=== PATIENT | male | born 2005 | race African-American/Black ===

== ENCOUNTER 2024-04-08 01:05 | Emergency (ER) | payer OTHER ==
[~2024-04-08] VITALS: Ht 177.8 cm; Wt 83.9 kg
[2024-04-08 01:30] VITALS: O2SAT 97
[2024-04-08] MEDS: ONDANSETRON HCL 4MG/2ML INJ IV ONE (02:12)
[2024-04-08 02:26] LABS: BASOPHILS % 0.8 % (0.0-2.0); DIFFERENTIAL COMMENT 0; EOSINOPHILS % 5.6 % (0.0-5.0); HEMATOCRIT. 48.6 % (42.0-52.0); HEMOGLOBIN. 15.9 g/dL (14.0-18.0); MEAN CORPUSCULAR HEMOGLOBIN 25.1 pg (28.0-32.0); MEAN CORPUSCULAR HGB CONC 32.7 g/dL (31.0-37.0); MEAN CORPUSCULAR VOLUME 76.9 fL (80.0-94.0); MEAN PLATELET VOLUME 8.6 fl (7.4-10.4); MONOCYTES % 6.1 % (2.0-8.0); NEUTROPHILS % 46.5 % (40.0-76.0); PLATELET 261 x1000/uL (130-400); RED BLOOD CELL COUNT 6.32 mill/uL (4.7-6.1); RED CELL DISTRIBUTION WIDTH 13.5 % (11.6-14.6); WHITE BLOOD COUNT 8.6 x1000/uL (4.5-11.0)
[2024-04-08 02:35] LABS: CHLORIDE 107 mEq/L (98-107); POTASSIUM 3.9 mEq/L (3.5-5.1); SODIUM 141 mEq/L (136-145)
[2024-04-08 02:36] LABS: CALCIUM 9.3 mg/dL (8.7-10.4); CARBON DIOXIDE 25 mEq/L (21-32)
[2024-04-08 02:41] LABS: CREATININE 0.9 mg/dL (0.6-1.3); GLUCOSE 159 mg/dL (70-105); UREA NITROGEN BLOOD 7 mg/dL (9-23)
[2024-04-08 02:42] LABS: ETHANOL BLOOD 262 mg/dL (<10)
[2024-04-08 07:25] VITALS: BP 116/54; PULSE 89; RESP 14; TEMP 36.94740; O2SAT 96
== END 2024-04-08 07:56 | disposition home or self-care (01) ==
LOC: ER 01:05 → EDBD 01:05 → ER 07:56
DX: G92.9 Unspecified toxic encephalopathy (principal)
CPT/HCPCS: 80048; 80320; 85025; 36415; 70450; 96374; 99285; J2405; G0480